=== PATIENT | female | born 1940 | race Two or more races ===

== ENCOUNTER 2016-08-02 15:35 | Emergency (ER) | payer MEDICARE, BC ==
[~2016-08-02] VITALS: Ht 162.6 cm; Wt 60.8 kg
[2016-08-02] MEDS ORDERED: MORPHINE SULFATE INJ 2 MG/ML DISP.SYRIN ONE (15:52)
[2016-08-02] MEDS ORDERED: MORPHINE SULFATE INJ 2 MG/ML DISP.SYRIN IM ONE (16:00)
[2016-08-02 16:17] LABS: BASOPHILS % (AUTO) 0.9 % (0.0-2.0); DIFF TOTAL % 100 %; EOSINOPHILS % (AUTO) 0.6 % (0.0-6.0); HEMATOCRIT 37 % (33-45); HEMOGLOBIN 12.5 g/dL (11.5-14.8); LYMPHOCYTES # (AUTO) 1.7 /CMM (0.8-4.8); LYMPHOCYTES % (AUTO) 34.3 % (20.0-44.0); MEAN CORPUSCULAR HEMOGLOBIN 30 PG (26.0-33.0); MEAN CORPUSCULAR HGB CONC 34 g/dl (31.0-36.0); MEAN CORPUSCULAR VOLUME 88 fL (82-100); MONOCYTES # (AUTO) 0.4 /CMM (0.1-1.30); MONOCYTES % (AUTO) 7.9 % (2.0-12.0); NEUTROPHILS # (AUTO) 2.9 /CMM (1.8-8.9); NEUTROPHILS % (AUTO) 56.3 % (43.0-81.0); PLATELET COUNT (AUTO) 184 /CMM (150-450); RED BLOOD CELL COUNT(AUTO) 4.22 MIL/uL (4.0-5.2)
[2016-08-02 16:26] LABS: ANION GAP 12 (5-14); CALCIUM, SERUM 8.6 mg/dL (8.5-10.1); CARBON DIOXIDE 28 mmol/L (21-32); CHLORIDE 106 mmol/L (98-107); CREATININE 0.7 mg/dL (0.6-1.3); GLUCOSE 112 mg/dL (74-106); POTASSIUM 4.3 mmol/L (3.5-5.1); SODIUM SERUM 142 mmol/L (136-145); UREA NITROGEN, BLOOD 13 mg/dL (7-18)
[2016-08-02 16:31] LABS: ALANINE AMINOTRANSFERASE 15 U/L (12-78); ALBUMIN 3.7 g/dL (3.4-5.0); ASPARTATE AMINOTRANSFERASE 12 U/L (15-37); BILIRUBIN,DIRECT 0.1 mg/dL (0.0-0.2); BILIRUBIN,TOTAL 0.2 mg/dL (0.2-1.0); INDIRECT BILIRUBIN 0.1 mg/dL (0.0-1.1); TOTAL PROTEIN, SERUM 6.8 g/dL (6.4-8.2)
[2016-08-02 16:34] LABS: TROPONIN I < 0.017 ng/mL (0.00-0.056)
[2016-08-02 17:26] VITALS: BP 134/78
== END 2016-08-02 17:32 | disposition home or self-care (01) ==
LOC: ER 15:42
DX: S20.212A Contusion of left front wall of thorax, initial encounter (principal); W50.0XXA Accidental hit or strike by another person, initial encounter; Y93.89 Activity, other specified; Y92.89 Other specified places as the place of occurrence of the external cause; Y99.8 Other external cause status
CPT/HCPCS: 36415; 71010; 80048; 80076; 83690; 84484; 85025; 93005; 96372; 99285; A4606; J2270; Z7610

== ENCOUNTER 2017-11-07 10:43 | Emergency (ER) | payer MEDICARE, BC ==
[~2017-11-07] VITALS: Ht 172.7 cm; Wt 67.1 kg
[2017-11-07] MEDS ORDERED: MORPHINE SULFATE INJ 2 MG/ML DISP.SYRIN IV ONE (11:30)
[2017-11-07] MEDS ORDERED: IBUPROFEN 600 MG TABLET PO ONE ×2 (11:30→12:15)
[2017-11-07] MEDS ORDERED: HYDROCODONE/APAP 10/325MG 1 EA TABLET ONE (12:15)
[2017-11-07] MEDS ORDERED: HYDROCODONE/APAP 10/325MG 1 EA TABLET PO ONE (12:30)
[2017-11-07 13:06] VITALS: BP 141/67
== END 2017-11-07 13:07 | disposition home or self-care (01) ==
LOC: ER 10:46
DX: S20.211A Contusion of right front wall of thorax, initial encounter (principal); E03.9 Hypothyroidism, unspecified; I70.0 Atherosclerosis of aorta; W01.0XXA Fall on same level from slipping, tripping and stumbling without subsequent striking against object, initial encounter; Y93.89 Activity, other specified; Y92.89 Other specified places as the place of occurrence of the external cause; Y99.8 Other external cause status
CPT/HCPCS: 71100-TC; A4606; Z7610

== ENCOUNTER 2019-01-16 14:23 | Emergency (ER) | payer BC, MEDICARE, OTHER ==
[~2019-01-16] VITALS: Ht 170.2 cm; Wt 59.0 kg
--- NOTE | 2019-01-16 14:40 | NUR ---
MOUTH PAIN X 1 MONTH, UNRELIEVED W/ OTC PAIN MEDS. WORST TODAY. TO ER BED 10, HOOKED TO MONITOR, PROVIDED W WARM BLANKET, AWAITING MD JOHNSON.
--- NOTE | 2019-01-16 15:05 | NUR ---
AMELIA HERBERT MD AT BEDSIDE
[2019-01-16] MEDS ORDERED: KETOROLAC TROMETHAMINE INJ 60 MG/2 ML VIAL IM ONE ×2 (15:09→15:30)
--- NOTE | 2019-01-16 15:20 | NUR ---
Patient discharged to home in stable condition. Written and verbal after care instructions given. Patient verbalizes understanding of instruction.
[2019-01-16 15:21] VITALS: BP 130/64
== END 2019-01-16 15:21 | disposition home or self-care (01) ==
LOC: ER 14:31
DX: K13.79 Other lesions of oral mucosa (principal); F41.9 Anxiety disorder, unspecified; E03.9 Hypothyroidism, unspecified
CPT/HCPCS: 96372; 99283; J1885

== ENCOUNTER 2019-09-29 15:12 | Emergency (ER) | payer BC, OTHER ==
[~2019-09-29] VITALS: Ht 170.2 cm; Wt 59.0 kg
--- NOTE | 2019-09-29 15:15 | NUR ---
[id number], c/o r wrist pain s/p tripped and fall while walking,nose abrasion -ko, pt aaox4, -sob, na dnoted, vss, pending md espinosa
[2019-09-29] MEDS ORDERED: MORPHINE SULFATE INJ 4 MG/ML DISP.SYRIN ONE (15:25)
[2019-09-29] MEDS ORDERED: MORPHINE SULFATE INJ 2 MG/ML DISP.SYRIN IM ONE (15:30)
[2019-09-29] MEDS ORDERED: HYDROCODONE/APAP 5/325MG 1 EACH TABLET ONE (15:50)
[2019-09-29] MEDS ORDERED: HYDROCODONE/APAP 5/325MG 1 EACH TABLET PO ONE (16:00)
--- NOTE | 2019-09-29 16:00 | NUR ---
pt to ct
[2019-09-29] MEDS ORDERED: ZOLP10TA2 PO (16:13)
[2019-09-29] MEDS ORDERED: LEVO50TA8 PO (16:13)
[2019-09-29] MEDS ORDERED: PROPOFOL 20 ML IV ONE (16:15)
[2019-09-29] MEDS ORDERED: IV NS 0.9% 1,000 ML BAG IV ONE (16:30)
[2019-09-29] MEDS ORDERED: PROPOFOL 200 MG/20 ML VIAL IV ONE (16:30)
[2019-09-29] MEDS ORDERED: ONDANSETRON HCL/PF 4 MG/2 ML VIAL IVP ONE (16:30)
[2019-09-29] MEDS ORDERED: ONDANSETRON HCL/PF 4 MG/2 ML VIAL ONE (16:35)
--- NOTE | 2019-09-29 16:50 | NUR ---
reduction of rt 2nd metacarpal phalangeal joint disclocation by -- propofol given under direct supervision by dr cisneros. see intervention notes
[2019-09-29 17:06] VITALS: BP 133/76
--- NOTE | 2019-09-29 17:29 | NUR ---
Patient discharged to home in stable condition. Written and verbal after care instructions given. Patient verbalizes understanding of instruction. IV removed. Catheter intact and site benign. Pressure and 4x4 applied to site. No bleeding noted. Pt ambulatory with a steady gait
== END 2019-09-29 17:29 | disposition home or self-care (01) ==
LOC: ER 15:19
DX: S63.260A Dislocation of metacarpophalangeal joint of right index finger, initial encounter (principal); S00.81XA Abrasion of other part of head, initial encounter; E03.9 Hypothyroidism, unspecified; Z98.890 Other specified postprocedural states; Z79.899 Other long term (current) drug therapy; W01.0XXA Fall on same level from slipping, tripping and stumbling without subsequent striking against object, initial encounter; Y93.01 Activity, walking, marching and hiking; Y92.89 Other specified places as the place of occurrence of the external cause; Y99.8 Other external cause status
CPT/HCPCS: 26700; 70450; 72125; 73130 ×2; 96372; 96374; 99152; 99285; J2270; J2405; J2704; J7030; J7050; G0500

== ENCOUNTER 2019-09-30 19:12 | Emergency (ER) | payer OTHER ==
[~2019-09-30] VITALS: Ht 167.6 cm; Wt 53.1 kg
[2019-09-30 19:12] VITALS: BP 116/59
[~2019-09-30 19:12] MED LIST: LEVO50TA8 PO; ZOLP10TA2 PO
== END 2019-09-30 20:16 | disposition home or self-care (01) ==
LOC: ER 19:14
DX: M79.641 Pain in right hand (principal); E03.9 Hypothyroidism, unspecified; Z98.890 Other specified postprocedural states; Z79.899 Other long term (current) drug therapy